=== PATIENT | female | born 1970 | race African-American/Black ===

== ENCOUNTER 2018-09-29 12:50 | Emergency (ER) | payer SELFPAY ==
[~2018-09-29] VITALS: Ht 175.3 cm; Wt 72.6 kg
--- NOTE | 2018-09-29 13:03 | NUR ---
Dr loza at the bedside for MSE.
[2018-09-29 13:31] VITALS: BP 143/77
--- NOTE | 2018-09-29 13:33 | NUR ---
Patient discharged to home in stable conditon. Written and verbal after care instructions given. Patient verbalizes understanding of instructions. Pt left ER w/ steady gait.
== END 2018-09-29 13:35 | disposition home or self-care (01) ==
LOC: ER 12:50
DX: R00.0 Tachycardia, unspecified (principal); R10.13 Epigastric pain
CPT/HCPCS: 93005; A4663